=== PATIENT | male | born 1965 | race African-American/Black ===

== ENCOUNTER 2024-03-20 11:57 | Outpatient (REF) | payer OTHER, SELFPAY ==
--- NOTE | ~2024-03-20 | XR_ITS ---
EXAMINATION: XR KNEE, LEFT CLINICAL INFORMATION: Left knee pain. COMPARISON: None available. TECHNIQUE: AP, lateral, and sunrise views of the left knee. FINDINGS: Postsurgical change consistent with anterior cruciate ligament reconstruction. Orthopedic screw within the distal femoral metaphysis. No evidence of hardware complication. Corticated ossification adjacent to the medial femoral condyle consistent with a remote medial collateral ligament avulsion injury. No acute fracture or dislocation. Mild tricompartmental joint space narrowing with small marginal osteophytes. No osseous erosion. Small joint effusion. Medial and lateral compartment chondrocalcinosis. XR/XR knee LT 3V IMPRESSION: 1. Mild tricompartmental osteoarthritis. Small joint effusion. 2. Medial and lateral compartment chondrocalcinosis. 3. Postsurgical change consistent with anterior cruciate ligament reconstruction. No evidence of hardware complication. Electronically signed by: Marky Christensen MD 04/16/2024 08:58 PM EDT
== END 2024-03-20 11:58 | disposition home or self-care (01) ==
LOC: HO.HOSX 11:57
PROVIDERS: Visit Provider Orthopaedic Surgery
DX: M25.562 Pain in left knee (principal); Z98.890 Other specified postprocedural states
CPT/HCPCS: 20610; 73562; J1010

== ENCOUNTER 2024-03-20 14:39 | Outpatient (AMB) | payer OTHER, SELFPAY ==
--- NOTE | 2024-03-20 14:48 | MHC.OFFVIS ---
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 The patient states that he underwent reconstructive surgery of his left knee approximately 20 years ago after suffering an injury while playing football. The patient states that he re-injured his knee approximately 1 year ago. He twisted his knee and had acute onset of pain. Has had difficulty working out at the gym because of his pain. Has tried Tylenol and anti-inflammatory medicines which gave him minimal relief. He denies any fevers or chills. He has done physical therapy exercises which aggravated his pain. He states that his left knee will give out several times per day. Allergies No Known Allergies Allergy (Verified 03/20/24 15:18) Medication List - Last Reconciled 03/20/24 by Naveen Allan MD amlodipine 10 mg PO DAILY atorvastatin 20 mg PO DAILY loratadine 10 mg PO DAILY metoprolol succinate ER 50 mg PO DAILY Physical Exam Const Other: Well-nourished well-developed very friendly male awake alert and oriented x3 in no acute distress Extrem Other: Bilateral lower extremity examination shows good capillary refill, no skin lesions noted, normal sensation light touch Left knee examination shows a mild effusion, minimal crepitus with range of motion, tenderness along his medial joint line, positive Alejandro's test, no instability Office Procedures Joint Injection/Aspiration Joint Injection/Aspiration Primary Site: left knee Prep: site was prepped using aseptic technique Injected: 40 mg of, DepoMedrol and 1% plain lidocaine Procedure: The patient tolerated the procedure well Coding 47793 - Large joint Procedure code (CPT) selection complete Results Reviewed Results Reviewed: X-rays of the patient's left knee show mild diffuse joint space narrowing, screws within the distal femur and proximal tibia consistent with previous anterior cruciate ligament reconstruction, no acute bony abnormalities Assessment & Plan Assessment & Plan (1) Left knee pain: Code(s): M25.562 - Pain in left knee Category: Medical Plan Mr. Choi presents with recurrent left knee pain and mechanical symptoms most likely due to a medial meniscus tear. I had a lengthy discussion with the patient regarding the treatment options. The risks and benefits of a left knee cortisone injection were discussed at length with the patient. The patient wished to proceed. He tolerated the injection well. Prior to the injection I aspirated 2 cc of clear fluid from his left knee. I will also order an MRI of his left knee to further evaluate the status of his medial meniscus. I will see him back once the MRI is completed to discuss the findings and treatment options. Feel free to call me at any time should questions regarding his orthopedic management arise. Thank you very much for asking me to see this very friendly gentleman. I spent 21 minutes in reviewing the patient's records and imaging studies, seeing the patient and documenting in the medical record. Orders: Orders XR knee LT 3V 03/20/24 M25.562 - Pain in left knee MR knee LT wo con Today M25.562 - Pain in left knee AMB Joint Injection/Aspiration 03/20/24 M25.562 - Pain in left knee XR knee RT 1V 03/20/24 M25.562 - Pain in left knee Coding Level of Care Code New Pt Level 3 (96747) Diagnoses Left knee pain M25.562 CPT Codes Coding - 25299 Large joint: 37094 - Large joint ([id number])
== END 2024-03-20 15:51 | disposition home or self-care (01) ==
PROVIDERS: PCP Internal Medicine; Visit Provider Orthopaedic Surgery
DX: M25.562 Pain in left knee (principal)
CPT/HCPCS: 20610; 99203

== ENCOUNTER 2024-11-25 12:44 | Outpatient (AMB) | payer OTHER, SELFPAY ==
--- NOTE | 2024-11-25 13:10 | A.OFFVIS_ITS ---
Vital Signs 11/25/24 13:13 Height 5 ft 9 in Weight 222 lb BMI 32.8 BP 122/69 Blood Pressure Location Rt brachial Position Sitting Pulse 62 Intake Visit Reasons: external hemorroids Intake Note: Patient referred by pcp Dr. Lambert for external hemorrhoids. Patient c/o: constipation at times. Colonoscopy 5m ago at [facility]. Night Worker Required: No Accompanied by: Self / Same As Patient Allergies No Known Allergies Allergy (Verified 11/25/24 13:15) HPI Comments Details: Patient presents for evaluation of symptomatic hemorrhoids. He has had this for many years time. His complaints were bleeding, pain, and swelling. Patient had colonoscopy roughly 5 months ago which demonstrated some colonic polyps but no other endoluminal pathology. Patient does have occasional hard stools which he thinks aggravates his symptoms. As noted above, this has been going on for many years time. Occasionally the bleeding is quite significant. He also occasionally has to reduced his hemorrhoids along with the pain he endorsed. He denies any anal receptive practice. Chart was reviewed and patient evaluated. [facility] Medical History (Updated 11/25/24 @ 13:17 by MARTY Mccauley) Carpal tunnel syndrome on both sides Umbilical hernia Ganglion cyst of both hands HTN (hypertension) Social History (Updated 11/25/24 @ 13:18 by MARTY Mccauley) Alcohol intake: never Patient Tobacco Use Status: Never used Tobacco Physical Exam Vital Signs: Last Vital Signs Pulse 62 11/25/24 13:13 BP 122/69 11/25/24 13:13 BMI result Body Mass Index 32.8 Chest Other: Chest sounds bilaterally, HS 1 in 2 GI Other: Abdomen corpulent, soft, benign Rectal exam demonstrates a massive internal and external hemorrhoid at the 12 o'clock position prone. Smaller internal and external at the 07:00 and 04:00 position hemorrhoids also demonstrated. Rectal exam was deferred secondary to patient discomfort Assessment & Plan Assessment & Plan (1) Internal and external bleeding hemorrhoids: Code(s): K64.4 - Residual hemorrhoidal skin tags; K64.8 - Other hemorrhoids Category: Surgical Plan Patient was like to have it is hemorrhoids excised. Risks, benefits, alternatives of the procedure reviewed with the patient included but not limited to bleeding, infection, recurrence, numbness, pain, scarring, fecal incontinence and the patient wishes to proceed. All questions answered. Patient will receive a many bowel prep day prior.. Arrangements were made for this on a day which is convenient for him. Coding Level of Care Code New Pt Level 5 (80759) Diagnoses Internal and external bleeding hemorrhoids K64.4; K64.8
[2024-11-25 13:13] VITALS: BP 122/69; PULSE 62; BMI 32.8
--- OUTSIDE RECORDS SUMMARY | 2024-11-25 15:07 | XMS_ITS | Clinical Summary ---
Author Organization [facility] Address [address] [place] [address] Phone Care Team Providers Care Production Repairer Name Role Phone Unavailable Primary Care Provider Unavailabl e Social History Tobacco Use Types Packs/Day Years Used Date Smoking Tobacco: Never Assessed Sex and Gender Information Value Date Recorded Sex Assigned at Not on file Legal Sex Male 8:45 PM EST Gender Identity Not on file Sexual Orientation Not on file Plan of Treatment Health Maintenance Due Date Last Done Comments DTaP,Tdap,and Td Vaccines (1 - Tdap) 1982 Pneumococcal Vaccine: 50+ Ye ars (1 of 1 - PCV) 2013 Zoster Vaccines (1 of 2) 2013 Cholesterol Screening (Lipid Panel) 07/08/2022 Colorectal Cancer Screening: Colonoscopy 07/08/2022 Depression Screening 07/08/2022 HIV Screening 07/08/2022 Hepatitis C Screening 07/08/2022 Social Influencers of Health Screening 07/08/2022 COVID-19 Vaccine ( - 2023-2 5 season) 2024 Influenza Vaccine (Season Ended) 2025 RSV Immunization Adult Patie nts (1 - 1-dose 75+ series) 2038 HIB Vaccines Aged Out No longer eligi ble based on patient's age to complete this topic HPV Vaccines Aged Out No longer eligi ble based on patient's age to complete this topic Hepatitis A Vaccines Aged Out No long er eligible based on patient's age to complete this topic Hepatitis B Vaccines Aged Out No long er eligible based on patient's age to complete this topic IPV Vaccines Aged Out No longer eligi ble based on patient's age to complete this topic MMR Vaccines Aged Out No longer eligi ble based on patient's age to complete this topic Meningococcal ACWY Vaccine Aged Out N o longer eligible based on patient's age to complete this topic Meningococcal B Vaccine Aged Out No l onger eligible based on patient's age to complete this topic Pneumococcal Vaccine: Pediat rics (0 to 5 Years) and At-Risk Patients (6 to 64 Years) Aged Out No longer eligible b ased on patient's age to complete this topic RSV Immunization Patients Un saul 20 months Aged Out No longer eligible b ased on patient's age to complete this topic Varicella Vaccines Aged Out No longer eligible based on patient's age to complete this topic
== END 2024-11-25 13:43 | disposition home or self-care (01) ==
LOC: HO.HGS 12:44
PROVIDERS: PCP Internal Medicine; Visit Provider Surgery
DX: K64.8 Other hemorrhoids (principal)
CPT/HCPCS: 99204

== ENCOUNTER 2025-01-08 14:28 | Outpatient (AMB) | payer OTHER, SELFPAY ==
--- NOTE | 2025-01-08 14:29 | A.OFFVIS_ITS ---
Vital Signs 01/08/25 14:34 Height 5 ft 9 in Weight 220 lb BMI 32.5 BP 129/85 Blood Pressure Location Rt brachial Position Sitting Pulse 76 Intake Visit Reasons: hemorrhoids Intake Note: Patient last seen by Dr. Agarwal on 11-25-2024. Here today to discuss hemor rhoidectomy. Patient c/o: denies external hemorrhoids. No constipation or diarrhea. Foam Charger Required: No Accompanied by: Self / Same As Patient Allergies No Known Allergies Allergy (Verified 01/08/25 14:29) Medication List - Last Reconciled 01/08/25 by Patrick Schuster MD amlodipine 10 mg PO DAILY atorvastatin 20 mg PO DAILY loratadine 10 mg PO DAILY metoprolol succinate ER 50 mg PO DAILY HPI HPI hemorrhoids: Details: 59-year-old male referred for hemorrhoid issues. He was actually seen by Dr. Agarwal in November, for this. He describes having a long history of prolapse of his hemorrhoids along with significant discomfort, swelling and some bleeding in the past He says that his hemorrhoid issues have been worsening over the years. He describes some occasional constipation He had a colonoscopy earlier this year which he says showed some polyps. He says that he has next colonoscopy is in the next 5 years. He says he was told that he had hemorrhoids as well during his colonoscopy. [facility] Medical History (Updated 01/08/25 @ 14:52 by Patrick Schuster MD) Hemorrhoids that prolapse with straining and require manual replacement back inside anal canal Carpal tunnel syndrome on both sides Umbilical hernia Ganglion cyst of both hands HTN (hypertension) Social History Alcohol intake: never Patient Tobacco Use Status: Never used Tobacco Review of Systems Const Denies chills and Denies fever(s) Card Denies chest pain, Denies dyspnea and Denies dyspnea on exertion Resp Denies cough, Denies dyspnea and Denies dyspnea on exertion GI Reports hematochezia and Denies change in bowel habits Denies hematuria and Denies difficulty urinating Musc Denies back pain and Denies limited range of motion Neuro Denies focal weakness and Denies convulsions Psych Denies depression and Denies mood swings Physical Exam Vital Signs: Last Vital Signs Pulse 76 01/08/25 14:34 BP 129/85 01/08/25 14:34 BMI result Body Mass Index 32.5 Const General: comfortable and no acute distress Nutritional Appearance: overweight Orientation/consciousness: patient oriented x3 Neck Neck: Yes no lymphadenopathy Resp Auscultation: clear to auscultation bilaterally Cardio Rhythm: regular rhythm GI Other: Rectal exam shows external hemorrhoids, moderate size Palpation (GI): Soft to palpation, nontender and no guarding Neuro General: patient oriented x3 Office Procedures Anoscopy He was in healing odalys-knife position. The anoscope was gently inserted. A full examination of the anal canal was done. This shows the moderate size hemorrhoidal column, a mix of internal external which seems to be mostly on the right posteriorly. There were no other obvious lesions. There was no bleeding. There were no induration. There was no induration on digital exam 77972-Nabsaigl Assessment & Plan Assessment & Plan (1) Hemorrhoids that prolapse with straining and require manual replacement back inside anal canal: Code(s): K64.2 - Third degree hemorrhoids Category: Medical Plan: He describes hemorrhoids that prolapse and has to be manually reduced with bowel movements. He says that he also has had some occasional swelling, and pain with his hemorrhoids which have been worsening over the years He wants to proceed with hemorrhoidectomy I had a long discussion with him about the technique of hemorrhoidectomy. I explained the risks including but not limited to bleeding, infections, postop pain, as well as the benefits and alternatives. I also reviewed with him what to expect postoperatively He says he wants to proceed. Coding Level of Care Code Est Pt Level 3 (65864) Diagnoses Hemorrhoids that prolapse with straining and require manual replacement back inside anal canal K64.2 CPT Codes Details - CPT: 70330-Wadqxsxi ([id number])
[2025-01-08 14:34] VITALS: BP 129/85; PULSE 76; BMI 32.5
--- OUTSIDE RECORDS SUMMARY | 2025-01-08 17:08 | XMS_ITS | Clinical Summary ---
Author Organization [facility] Address [address] [place] [address] Phone Care Team Providers Care Felt Cementer Name Role Phone Unavailable Primary Care Provider [...]
== END 2025-01-08 14:52 | disposition home or self-care (01) ==
LOC: HO.HGS 14:28
PROVIDERS: PCP Internal Medicine; Visit Provider Surgery
DX: K64.2 Third degree hemorrhoids (principal)
CPT/HCPCS: 46600; 99213

== ENCOUNTER → 2025-01-08 14:28 | Outpatient (BNVA) | payer OTHER, SELFPAY | PROVIDERS: PCP Internal Medicine; Visit Provider Surgery | DX: K64.2 Third degree hemorrhoids (principal) | CPT/HCPCS: 46600 ==

== ENCOUNTER 2025-01-27 14:22 | Emergency (ER) | payer OTHER, SELFPAY ==
--- NOTE | ~2025-01-27 | US_ITS ---
EXAMINATION: US TRIPLEX LOWER EXTREMITY, RIGHT CLINICAL INFORMATION: Right calf pain and redness. COMPARISON: None available. TECHNIQUE: Color-flow triplex imaging with spectral analysis and compression Doppler were performed on the right lower extremity. FINDINGS: Respiratory variation, normal compression and augmented flow are noted throughout the right lower extremity. The visualized common femoral vein, superficial femoral vein, profunda femoral vein, popliteal vein and midcalf peroneal and posterior tibial venous segments show no evidence of deep venous thrombosis. There is no Good's cyst. There are reactive appearing right groin lymph nodes. US/US venous duplex LE RT IMPRESSION: No evidence of deep venous thrombosis involving the right lower extremity. Electronically signed by: Austen Rosa MD 01/27/2025 04:46 PM EDT
[2025-01-27 14:34] VITALS: BP 122/96; PULSE 101; RESP 16; TEMP 37.3; O2SAT 97; BMI 34.0
--- NOTE | 2025-01-27 14:39 | ED.SKABFB ---
HPI - Skin/Abscess/Foreign Bdy General Chief complaint: Extremity Problem Stated complaint: right leg swelling, ? dvt Time Seen by Provider: 01/27/25 20:55 History of Present Illness ED Provider: Frank Garcia MD HPI narrative: Patient presents with 2 days of redness and swelling of the leg from the ankle to just below the knee nearly circumferential. No etienne no injuries. 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 No difficulty breathing no history of DVT or PE Related Data Home Medications ?Medication ?Instructions ?Recorded ?Confirmed amlodipine 10 mg tablet 10 mg PO DAILY 03/20/24 01/08/25 atorvastatin 20 mg tablet 20 mg PO DAILY 03/20/24 01/08/25 loratadine 10 mg tablet 10 mg PO DAILY 03/20/24 01/08/25 metoprolol succinate 50 mg 50 mg PO DAILY 03/20/24 01/08/25 tablet,extended release 24 hr Previous Rx's ?Medication ?Instructions ?Recorded cefadroxil 500 mg capsule 500 mg PO BID 7 days #14 caps 01/27/25 Allergies Allergy/AdvReac Type Severity Reaction Status Date / Time No Known Allergies Allergy Verified 01/27/25 14:38 [facility] Past Medical History Medical History (Updated 01/28/25 @ 00:01 by Background Alejandro) Hemorrhoids that prolapse with straining and require manual replacement back inside anal canal Carpal tunnel syndrome on both sides Umbilical hernia Ganglion cyst of both hands HTN (hypertension) Social History Social History Alcohol intake: never Patient Tobacco Use Status: Never used Tobacco Smoked in Last 30 Days: No Use of substances other than those prescribed or required for medical reasons: No Advance Directives: No Advance Directives Information Provided: Yes Do you have a plan to hurt others: No Plan Physical Exam Vital Signs: Vital Signs: Last Vital Signs Temp 98.2 F 01/27/25 21:56 Pulse 88 01/27/25 21:56 Resp 18 01/27/25 21:56 BP 131/84 01/27/25 21:56 Pulse Ox 97 01/27/25 21:56 O2 Del Method Room Air 01/27/25 21:56 BMI result Body Mass Index 34.0 Const: Other: EXAM: Gen: Alert, awake, well appearing, well hydrated. Head: Atraumatic Eyes: Anicteric, Normal conjunctiva. ENT: Moist mucosa, no pallor. ? Neck: Supple. Skin: Right leg with blotchy erythema and redness mild swelling. Soft muscular compartments Respiratory: Breathing comfortably, No distress.Clear to auscultation bilaterally, symmetric chest expansion, No wheeze, rales, ronchi. Cardiovascular: Regular rate and rhythm. No murmurs or rub. Well perfused periphery, warm extremities. No edema. ? Abdominal: No FOCAL TENDERNESS. Soft, no objective distension. No palpable masses or obvious organomegaly. ?No guarding, no rebound tenderness or other peritoneal findings. : No flank tenderness. Neuro: Alert. Gross movement of all extremities intact. ? Psych: Calm. Cooperative. MSK: No grossly visible deformity. Vital signs: See flowsheet Course Course Course Narrative: RME: Joy Uriarte PA-C 01/27/2025: 241 pm: will defer full ROS and PE to treating provider Rash on leg since yesterday, spreading, spares rest of his body, itchy, no interventions for it. Provider sent him here to rule out VTE. RLE: on mcnamara and parts of calf, erythematous rash patches with few vesicles, no redstreaking, compartments are soft DTRs are intact full range of motion distal joint no pain on proportion, excoriations from scratching notes, spares ankle, not circumferential Will order u/s Medications Administered Discontinued Medications Generic Name Dose Route Start Last Admin Trade Name Freq PRN Reason Stop Dose Admin Cephalexin HCl 500 mg 01/27/25 21:37 01/27/25 21:53 Cephalexin 500 Mg Capsule PO 01/27/25 21:38 500 mg ONCE ONE Administration Discharge Plan Discharge Clinical Impression: Cellulitis Patient Disposition: Home, Self-Care Instructions: Cellulitis (ED), Warm Compress or Soak (ED) Additional Instructions: DISCHARGE DIAGNOSES: Cellulitis skin infection of the right leg blood clot or DVT has been excluded HISTORY OF PRESENTATION: ?[2 days of swelling and redness right leg EMERGENCY DEPARTMENT COURSE,TESTS, TREATMENTS: While in the ED today you had an ultrasound that did not show any abnormalities or blood clot in the right leg DISCHARGE MEDICATIONS: ?[We have made no changes to your regular medication regimen] we have added cefadroxil and antibiotic you got the 1st dose in the ER FOLLOW-UP: ?Call your primary or general physician soon as possible to discuss your symptoms, your ED visit and to discuss follow up plans Call your primary doctor for follow up INSTRUCTIONS ?& RETURN PRECAUTIONS: If any symptoms change first call your primary physician, if it is after-hours your primary doctors office should have a provider contact lens molder you can speak with. If the symptoms are severe or very concerning to you then call 911 or return to the ED. If you develop severe worsening pain high fevers shaking chills or worsening spreading of the redness despite 48 hours at least of antibiotics return back to the emergency department Frank Garcia MD Emergency Physician [facility] Prescriptions: New cefadroxil 500 mg capsule 500 mg PO BID 7 Days Qty: 14 0RF No Action metoprolol succinate 50 mg tablet extended release 24 hr 50 mg PO DAILY atorvastatin 20 mg tablet 20 mg PO DAILY amlodipine 10 mg tablet 10 mg PO DAILY loratadine 10 mg tablet 10 mg PO DAILY Stand Alone Forms: Work/School Release Interventions: ED Discharge Assessment Last Done: 01/27/25 21:56 Discharge Date/Time: 01/27/25 21:57 Print Language: Palestinian
[2025-01-27 19:12] VITALS: BP 109/68; PULSE 89; RESP 18; TEMP 36.8; O2SAT 100
[2025-01-27 21:51] VITALS: BP 131/84; PULSE 88; RESP 18; TEMP 36.8; O2SAT 97
[2025-01-27] MEDS: cephALEXin 500 MG CAPSULE PO (21:53)
[2025-01-27 21:56] VITALS: BP 131/84; PULSE 88; RESP 18; TEMP 36.8; O2SAT 97
== END 2025-01-27 21:57 | disposition home or self-care (01) ==
PROVIDERS: Emergency Provider Emergency Medicine; PCP Internal Medicine
DX: L03.115 Cellulitis of right lower limb (principal); M79.661 Pain in right lower leg; R21 Rash and other nonspecific skin eruption
CPT/HCPCS: 93971; 99284

== ENCOUNTER → 2025-01-27 14:43 | Outpatient (BNV) | payer OTHER, SELFPAY | PROVIDERS: PCP Internal Medicine; Visit Provider Radiology Diagnostic Radiology | DX: M79.661 Pain in right lower leg (principal) | CPT/HCPCS: 93971 ==

== ENCOUNTER 2025-02-26 14:13 | Outpatient (AMB) | payer OTHER, SELFPAY ==
--- OUTSIDE RECORDS SUMMARY | 2025-02-26 14:16 | XMS_ITS | Clinical Summary ---
Author Organization [facility] Address [address] [place] [address] Phone Care Team Providers Care Fiberglass Finisher Name Role Phone Unavailable Primary Care Provider [...] Panel) 07/08/2022 Colorectal Cancer Screening: Colonoscopy 07/08/2022 HIV Screening 07/08/2022 Hepatitis C Screening 07/08/2022 Social Influencers of Health Screening 07/08/2022 COVID-19 Vaccine ( - 2023-2 5 season) 2024 Depression Screening 08/06/2024 Influenza Vaccine (#1) 2025 RSV Immunization Adult Patie nts (1 [...]
--- NOTE | 2025-02-26 14:19 | A.OFFVIS_ITS ---
Intake Visit Reasons: Inj-LT knee pain/effusion last inj 03/20/24 Intake Note: Elmer is a 59 year old male who presents today for follow up of his left knee pain. He was given a left knee cortisone injection at his last visit, 03/20/24. Patient reports the injection gave him relief. His pain has returned. He de scribes his left knee pain as sharp in nature. He denies any locking or giving way. He has tried Tylenol and anti-inflammatory medicines which gave him minimal relief. Allergies No Known Allergies Allergy (Verified 02/26/25 14:19) Medication List - Last Reconciled 02/26/25 by Naveen Allan MD amlodipine 10 mg PO DAILY atorvastatin 20 mg PO DAILY cefadroxil 500 mg PO BID 7 days loratadine 10 mg PO DAILY metoprolol succinate ER 50 mg PO DAILY [facility] Medical History (Updated 02/26/25 @ 14:38 by Naveen Allan MD) Hemorrhoids that prolapse with straining and require manual replacement back inside anal canal Carpal tunnel syndrome on both sides Umbilical hernia Ganglion cyst of both hands HTN (hypertension) Social History Alcohol intake: never Patient Tobacco Use Status: Never used Tobacco Physical Exam Const Other: Well-nourished well-developed very friendly male awake alert and oriented x3 in no acute distress Extrem Other: Left knee examination shows a minimal effusion, palpable crepitus with range of motion, pain with range of motion, no instability Office Procedures AMB Joint Injection/Aspiration Joint Injection/Aspiration Primary Site: left knee Prep: site was prepped using aseptic technique Injected: 40 mg of, DepoMedrol and 1% plain lidocaine Procedure: The patient tolerated the procedure well Coding 10064 - Large joint Procedure code (CPT) selection complete Results Reviewed Results Reviewed: X-rays of the patient's left knee taken previously show joint space narrowing, subchondral sclerosis, no acute bony abnormalities Assessment & Plan Assessment & Plan (1) Arthritis of left knee: Code(s): M17.12 - Unilateral primary osteoarthritis, left knee Category: Medical Plan Mr. Choi presents with left knee pain due to degenerative joint disease. The risks and benefits of a left knee cortisone injection were discussed at length with the patient. The patient wished to proceed. He tolerated the injection well. He will continue with his home exercise program. He will contact me prior to his follow-up appointment in 3 months should any questions or concerns arise. Feel free to call me at any time should questions regarding his orthopedic management arise. I spent 21 minutes in reviewing the patient's records and imaging studies, seeing the patient and documenting in the medical record. Orders: Orders AMB Joint Injection/Aspiration Today M17.12 - Unilateral primary osteoarthritis, left knee Coding Level of Care Code Est Pt Level 3 (60921) Complex EM visit Add On G2211 Diagnoses Arthritis of left knee M17.12 CPT Codes Coding - 95381 Large joint: 15312 - Large joint ([id number])
== END 2025-02-26 14:35 | disposition home or self-care (01) ==
LOC: HO.HOS 14:14
PROVIDERS: PCP Internal Medicine; Visit Provider Orthopaedic Surgery
DX: M17.12 Unilateral primary osteoarthritis, left knee (principal)
CPT/HCPCS: 20610; 99213

== ENCOUNTER → 2025-02-26 14:13 | Outpatient (BNVA) | payer OTHER, SELFPAY | PROVIDERS: PCP Internal Medicine; Visit Provider Orthopaedic Surgery | DX: M17.12 Unilateral primary osteoarthritis, left knee (principal) | CPT/HCPCS: 20610; J1010; J2003 ==